=== PATIENT | male | born 1985 | race Caucasian/White ===

== ENCOUNTER → 2016-07-14 | Outpatient (CLI) | payer BC ==
[2016-07-14 13:25] LABS: ALBUMIN 4.4 GM/DL (3.2-5.2); ALBUMIN/GLOBULIN RATIO 1.42 (1.00-1.93); ALKALINE PHOSPHATASE 65 U/L (45-117); ALT/SGPT 65 U/L (12-78); ANION GAP 6 MEQ/L (8-16); AST/SGOT 25 U/L (15-37); BILIRUBIN,TOTAL 0.6 MG/DL (0.2-1.0); BLOOD UREA NITROGEN 17 MG/DL (7-18); CALCIUM LEVEL 9.3 MG/DL (8.5-10.1); CARBON DIOXIDE LEVEL 31 MEQ/L (21-32); CHLORIDE LEVEL 103 MEQ/L (98-107); CREATININE FOR GFR 1.18 MG/DL (0.70-1.30); GLOMERULAR FILTRATION RATE > 60.0 (>60); GLUCOSE, FASTING 91 MG/DL (70-105); POTASSIUM SERUM 4.8 MEQ/L (3.5-5.1); SODIUM LEVEL 140 MEQ/L (136-145); TOTAL PROTEIN 7.5 GM/DL (6.4-8.2)
[2016-07-14 14:29] LABS: CONTROL LINE INT CTR LINE PRESENT; HIV SCRN NEGATIVE (NEGATIVE); HIV SCRN1 NEGATIVE (NEGATIVE)
== END | disposition home or self-care (01) ==
LOC: M SMT 09:47
PROVIDERS: ATTEND Family Medicine
DX: I10 Essential (primary) hypertension (principal); Z11.3 Encounter for screening for infections with a predominantly sexual mode of transmission; R94.5 Abnormal results of liver function studies

== ENCOUNTER → 2016-10-12 | Day surgery (SDC) | payer BC ==
[~2016-10-12] VITALS: Ht 190.5 cm; Wt 127.0 kg
[~2016-10-12] MED LIST: ACETAMINOPHEN TAB 650MG DOSE (2X325MG) PO PRN; BUPIVACAINE HCL 0.25% 30 ML VIAL As Ordered ONE; CYCL10TA PO; HYDR25TAB PO; IBUPROFEN 400 MG TAB PO PRN; KETOROLAC 60 MG/2 ML VIAL (J1885) As Ordered ONE; LIDOCAINE 2% INJ 100 MG/5 ML SDV (FOR ANES.) As Ordered ONE; LR 1,000 ML IV ONE; LR 1,000 ML IV SCH; MIDAZOLAM INJ 2 MG/2 ML VIAL (J2250) As Ordered ONE; ONDANSETRON 4MG/2ML VIAL (J2405) As Ordered ONE; ONDANSETRON 4MG/2ML VIAL (J2405) IV PRN; POTA10TA16 PO; PROPOFOL 200 MG/20 ML VIAL As Ordered ONE; dexameTHASONE 4 MG/ML 1ML VIAL (J1100) As Ordered ONE; fentaNYL 100 MCG/2 ML INJECTION (J3010) IV PRN; fentaNYL 250 MCG/5 ML INJECTION (J3010) As Ordered ONE
[2016-10-12 10:15] VITALS: BP 134/67
--- NOTE | 2016-10-13 06:27 | RO ---
DATE OF PROCEDURE: 10/12/2016 PREOPERATIVE DIAGNOSIS: Elective sterilization by vasectomy. POSTOPERATIVE DIAGNOSIS: Elective sterilization by vasectomy. PROCEDURE PERFORMED: Bilateral transscrotal segmental vasectomy. SURGEON: Dr. Samy Toribio. SAND DIGGER: ANESTHESIA: General. INDICATIONS FOR PROCEDURE: Patient is a 31-year-old man who has two children and he and his spouse have determined they wish no more children. He was examined for vasectomy and his testicles are high in the scrotum and do not appear to be easily displaced inferiorly enough to make this a successful outpatient procedure in the office with local. He was therefore scheduled for surgery with anesthesia support in the main operating room. OPERATIVE PROCEDURE: The patient was placed supine on the operating table. He was placed under general anesthesia using an LMA. The genitalia were prepped and draped in a sterile fashion. Palpation on the right revealed the right vas which was displaced anteriorly beneath the skin. An approximately 1.5 cm incision was made and the deeper tissues were spread with scissors. The vas was grasped with a perforating towel clamp and elevated. The tissues covering the vas were opened so that the vas itself was clearly defined. This was then elevated and surrounding structures were peeled away. The section of vas was ligated proximally and distally with #4-0 chromic. An approximately 3 cm segment of the vas was excised. The ends of the vas were cauterized and the soft tissue was closed over the distal end of the vas. The skin wound was closed with #4-0 chromic. A similar procedure was performed on the left with excision of a 2-1/2 to 3 cm segment of the vas. Again tissue was interposed between the two ends of the vas after they were cauterized. The skin was closed with chromic. Some 0.25% Marcaine was infiltrated along both incisions. The patient was then awakened in the operating room, extubated and moved to the recovery room in stable condition. NORM
== END ==
LOC: M SDC 06:07
PROVIDERS: ATTEND Surgery
DX: Z30.2 Encounter for sterilization (principal); I10 Essential (primary) hypertension; M51.26 Other intervertebral disc displacement, lumbar region; Z79.899 Other long term (current) drug therapy
CPT/HCPCS: 55250; 88302; J1100; J1885; J2250; J2405; J3010

== ENCOUNTER → 2017-05-09 | Outpatient (CLI) | payer BC ==
[~2017-05-09] MED LIST changes: -ACETAMINOPHEN TAB 650MG DOSE (2X325MG) PO PRN; -BUPIVACAINE HCL 0.25% 30 ML VIAL As Ordered ONE; -IBUPROFEN 400 MG TAB PO PRN; -KETOROLAC 60 MG/2 ML VIAL (J1885) As Ordered ONE; -LIDOCAINE 2% INJ 100 MG/5 ML SDV (FOR ANES.) As Ordered ONE; -LR 1,000 ML IV ONE; -LR 1,000 ML IV SCH; -MIDAZOLAM INJ 2 MG/2 ML VIAL (J2250) As Ordered ONE; -ONDANSETRON 4MG/2ML VIAL (J2405) As Ordered ONE; -ONDANSETRON 4MG/2ML VIAL (J2405) IV PRN; -PROPOFOL 200 MG/20 ML VIAL As Ordered ONE; -dexameTHASONE 4 MG/ML 1ML VIAL (J1100) As Ordered ONE; -fentaNYL 100 MCG/2 ML INJECTION (J3010) IV PRN; -fentaNYL 250 MCG/5 ML INJECTION (J3010) As Ordered ONE
[2017-05-09 13:33] LABS: ALBUMIN 4.4 GM/DL (3.2-5.2); ALBUMIN/GLOBULIN RATIO 1.47 (1.00-1.93); ALKALINE PHOSPHATASE 51 U/L (45-117); ALT/SGPT 135 U/L (12-78); ANION GAP 7 MEQ/L (8-16); AST/SGOT 66 U/L (7-37); BILIRUBIN,TOTAL 0.7 MG/DL (0.2-1.0); BLOOD UREA NITROGEN 19 MG/DL (7-18); CALCIUM LEVEL 9.1 MG/DL (8.5-10.1); CARBON DIOXIDE LEVEL 31 MEQ/L (21-32); CHLORIDE LEVEL 101 MEQ/L (98-107); CHOLESTEROL LEVEL 164 MG/DL (<200); CREATININE FOR GFR 1.23 MG/DL (0.70-1.30); FREE T4 1.21 NG/DL (0.76-1.46); GLOMERULAR FILTRATION RATE > 60.0 (>60); GLUCOSE, FASTING 100 MG/DL (70-105); POTASSIUM SERUM 4.5 MEQ/L (3.5-5.1); SODIUM LEVEL 139 MEQ/L (136-145); TOTAL PROTEIN 7.4 GM/DL (6.4-8.2); TRIGLYCERIDES LEVEL 128 MG/DL (<150)
== END ==
LOC: M SMT 08:49
PROVIDERS: ATTEND Physician Assistant
DX: I10 Essential (primary) hypertension (principal); R94.5 Abnormal results of liver function studies

== ENCOUNTER → 2017-09-10 | Outpatient (REF) | payer BC | LOC: M LAB REF 17:05 | DX: J02.9 Acute pharyngitis, unspecified (principal) | CPT/HCPCS: 87070 ==

== ENCOUNTER → 2017-10-30 | Outpatient (CLI) | payer BC ==
[2017-10-30 14:10] LABS: ANION GAP 7 MEQ/L (8-16); BLOOD UREA NITROGEN 12 MG/DL (7-18); CALCIUM LEVEL 9.5 MG/DL (8.5-10.1); CARBON DIOXIDE LEVEL 30 MEQ/L (21-32); CHLORIDE LEVEL 104 MEQ/L (98-107); CREATININE FOR GFR 1.44 MG/DL (0.70-1.30); GLOMERULAR FILTRATION RATE > 60.0 (>60); GLUCOSE, FASTING 103 MG/DL (70-100); SODIUM LEVEL 141 MEQ/L (136-145)
== END ==
LOC: M LAB 13:07
DX: Z01.812 Encounter for preprocedural laboratory examination (principal); G56.01 Carpal tunnel syndrome, right upper limb
CPT/HCPCS: 93005

== ENCOUNTER → 2018-05-01 | Outpatient (CLI) | payer BC ==
[2018-05-01 13:41] LABS: BASO % 0.5 % (0.0-1.0); EOS # 0.1 10^3/uL (0.0-0.50); EOS % 1.9 % (0.0-3.0); HEMATOCRIT 51.7 % (42.0-52.0); HEMOGLOBIN 17.6 g/dl (13.5-17.5); IMMATURE GRANULOCYTE % 0.3 % (0-3.0); LYMPH # 1.8 10^3/uL (1.5-4.5); LYMPH % 23.6 % (24.0-44.0); MEAN CORPUSCULAR VOLUME 88.1 fl (80.0-96.0); MONO # 0.5 10^3/uL (0.0-0.8); MONO % 7.2 % (0.0-5.0); NEUTROPHILS % 66.5 % (36.0-66.0); PLATELET COUNT, AUTOMATED 216 10^3/uL (150-450); RED BLOOD COUNT 5.87 10^6/uL (4.30-6.10); RED CELL DISTRIBUTION WIDTH 12.4 % (11.5-14.5); WHITE BLOOD COUNT 7.6 10^3/uL (4.0-10.0)
[2018-05-01 14:11] LABS: ANION GAP 6 MEQ/L (8-16); BLOOD UREA NITROGEN 14 MG/DL (7-18); CALCIUM LEVEL 9.5 MG/DL (8.5-10.1); CARBON DIOXIDE LEVEL 33 MEQ/L (21-32); CHLORIDE LEVEL 100 MEQ/L (98-107); CREATININE FOR GFR 1.42 MG/DL (0.70-1.30); FREE T4 1.22 NG/DL (0.76-1.46); GLOMERULAR FILTRATION RATE > 60.0 (>60); GLUCOSE, FASTING 98 MG/DL (70-100); POTASSIUM SERUM 4.3 MEQ/L (3.5-5.1); SODIUM LEVEL 139 MEQ/L (136-145); TOTAL 25(OH) VITAMIN D 30.8 NG/ML (30.0-100.0)
== END ==
LOC: M SMT 08:46
DX: I10 Essential (primary) hypertension (principal); R53.83 Other fatigue
CPT/HCPCS: 84443

== ENCOUNTER → 2018-05-14 | Outpatient (CLI) | payer BC ==
--- NOTE | 2018-05-17 14:18 | SLEEPHOME ---
DATE OF STUDY: 05/14/2018 ORDERED BY: Chirag Mares Diagnostic home sleep testing was performed due to concern for the obstructive sleep apnea syndrome in this patient with a history of daytime fatigue. For testing, a nocturnal C3 respiratory monitoring device was used. Continuous record was made of pulse, oxygen saturation, airflow, chest and abdominal strain, and body position. 9 hours and 59 minutes of data were reviewed. There were 9 hours and 6 minutes marked as time in bed. During the interval marked time in bed, there were 61 respiratory events identified of 10 seconds in duration or greater for a respiratory event index of 6.7. The events were primarily obstructive, not exclusive to the supine posture. Baseline pulse rate was 74. Pulse rate ranged from 54 to 98. Baseline saturation was 95%. Saturations fell to 90%. Testing was performed in both the supine and nonsupine positions. IMPRESSION: Abnormal home sleep testing with repetitive respiratory events, oxygen desaturations to 90%, and a respiratory event index of 6.7 is consistent with the obstructive sleep apnea syndrome. RECOMMENDATION: As home testing can underestimate the severity of sleep apnea, referral for formal sleep evaluation and in-laboratory pressure titration should be considered.
== END ==
LOC: M SLEEP HO 13:57
PROVIDERS: ATTEND Physician Assistant
DX: G47.30 Sleep apnea, unspecified (principal)

== ENCOUNTER → 2020-11-18 | Outpatient (CLI) | payer BC ==
[~2020-11-18] MED LIST changes: +CYCL-707 PO; -CYCL10TA PO; +HYDR-3490 PO; -HYDR25TAB PO
--- NOTE | 2020-11-18 17:56 | REPVR ---
PROCEDURE INFORMATION: Exam: MR Lumbar Spine Without Contrast Exam date and time: 11/18/2020 3:07 PM Age: 35 years old Clinical indication: Low back pain; Additional info: Disc disorder with radiculopathy TECHNIQUE: Imaging protocol: Multiplanar magnetic resonance images of the lumbar spine without intravenous contrast. COMPARISON: CR Spine. Lumbosacral, complete 05/02/2014 11:24 AM FINDINGS: Vertebrae: The lumbar vertebral bodies are normal in height, without abnormal subluxation. Spinal cord: The distal end of the conus medullaris ends at L1, normal in position. Multilevel findings: Degenerative disc disease is noted from L3-L4 through L5-S1, with a decrease in the T2 signal intensity of the discs as well as disc bulge/osteophyte complexes. L1-L2: There is no significant narrowing of the thecal sac or neural foramina. L2-L3: Mild facet arthropathy and hypertrophy of the ligamentum flavum. Minimal disc bulging causing flattening of the ventral border of the thecal sac without significant spinal canal stenosis. There is mild bulging into the neural foramina, without significant neural foraminal narrowing bilaterally. L3-L4: Bilateral facet arthropathy with hypertrophy of the ligamentum flavum. There is a right paracentral disc protrusion with mild narrowing of the thecal sac. Mild prominence of the posterior epidural fat visualized. Narrowing of both lateral recesses. Moderate right and mild left neural foraminal narrowing. L4-L5: Bilateral facet arthropathy with hypertrophy of the ligamentum flavum. A broad-based disc central left-sided disc protrusion is visualized, with severe narrowing of the thecal sac. Mild prominence of the posterior epidural fat. The AP dimension of the thecal sac measures 6-7 mm. There is narrowing of both lateral recesses. Moderate right and severe left neural foraminal narrowing. There is encroachment on the exiting left L4 nerve root. Probable encroachment on the L5 nerve roots within the lateral recesses. Edema within the bone marrow adjacent to the endplates at this level, with a decrease in disc height. This edema is likely secondary to degenerative changes. L5-S1: Bilateral facet arthropathy. A broad-based disc bulge/osteophyte complex with protrusions are visualized causing narrowing the anterior epidural fat. Increased T2 signal intensity is seen within a central disc herniation versus a discal cyst. Severe narrowing of the thecal sac. Moderate to severe bilateral neural foraminal narrowing. Soft tissues: No significant paraspinal swelling. IMPRESSION: 1. Degenerative changes are noted from L2-L3 through L5-S1, as described above. 2. Protrusions are visualized at L4-L5 and L5-S1, with severe narrowing of the thecal sac at these levels. 3. At L3-L4, there is a right paracentral disc protrusion with mild narrowing of the thecal sac. 4. Neural foraminal narrowing from L3-L4 through L5-S1. There is encroachment on the exiting left L4 nerve root. Probable encroachment on the L5 nerve roots within the lateral recesses at L4-L5. 5. Additional findings described above. Electronically signed by: Eric Jacobo On 11/18/2020 17:56:11 PM
== END ==
LOC: M PLARAD 14:21
PROVIDERS: ATTEND Physician Assistant
DX: M51.16 Intervertebral disc disorders with radiculopathy, lumbar region (principal)

== ENCOUNTER → 2020-11-22 | Outpatient (CLI) | payer BC ==
--- NOTE | 2020-11-23 14:14 | SLEEPHOME ---
DATE: 11/22/2020 ORDERED BY: Antwan Nguyen Diagnostic home sleep testing was performed due to concern for the obstructive sleep apnea syndrome in this patient with a history of hypersomnia. For testing, a nocturnal T3 respiratory monitoring device was used. Continuous record was made of pulse, oxygen saturation, air flow, chest and abdominal strain, and body position. There was 11 hours and 53 minutes of data reviewed. There was 8 hours and 21 minutes marked as time in bed. During the interval marked time in bed, there were 56 respiratory events identified of 10 seconds in duration or greater. The events were primarily seen in the supine position. They were obstructive. Baseline pulse rate 75. Pulse rate ranged 52-111. Baseline saturation 94%. Saturations fell to 89%. Testing was performed in both the supine and nonsupine positions. IMPRESSION: Abnormal home sleep testing with repetitive respiratory events and oxygen desaturations to 89% with a respiratory event index of 6.7 is consistent with the obstructive sleep apnea syndrome. RECOMMENDATION: Sleep position retraining for avoidance of the supine posture may be sufficient. Should symptoms persist, referral for formal sleep evaluation is recommended.
== END ==
LOC: M SLEEP HO 10:40
PROVIDERS: ATTEND Physician Assistant
DX: G47.10 Hypersomnia, unspecified (principal)

== ENCOUNTER → 2020-12-14 | Outpatient (CLI) | payer BC ==
--- NOTE | 2020-12-14 23:45 | ECWPNPC ---
PATIENT NAME: SHERRIE LEE : 1985 GENDER: MALE VISIT DATE: 12/14/2020 DISCHARGE DATE: 12/14/20933 VISIT LOCKED DATE TIME: PHYSICIAN: LAN WYNNE RESOURCE: LAN WYNNE REASON FOR APPOINTMENT 1. DDD OF LUMBAR HISTORY OF PRESENT ILLNESS DEPRESSION SCREENING: PHQ-9 LITTLE INTEREST OR PLEASURE IN DOING THINGSNEARLY EVERY DAY FEELING DOWN, DEPRESSED, OR HOPELESSNOT AT ALL TROUBLE FALLING OR STAYING ASLEEP, OR SLEEPING TOO MUCHMORE THAN HALF THE DAYS FEELING TIRED OR HAVING LITTLE ENERGYNEARLY EVERY DAY POOR APPETITE OR OVEREATING NOT AT ALL FEELING BAD ABOUT YOURSELF-OR THAT YOU ARE A FAILURE OR HAVE LET YOURSELF OR YOUR FAMILY DOWN NOT AT ALL TROUBLE CONCENTRATING ON THINGS, SUCH READING THE NEWSPAPER OR WATCHING TELEVISION NOT AT ALL MOVING OR SPEAKING SO SLOWLY THAT OTHER PEOPLE COULD HAVE NOTICED. OR THE OPPOSITE- BEING SO FIDGETY OR RESTLESS THAT YOU HAVE BEEN MOVING AROUND A LOT MORE THAN USUALNOT AT ALL THOUGHTS THAT YOU WOULD BE BETTER OFF , OR OF HURTING YOURSELF IN SOME WAY?NOT AT ALL TOTAL SCORE:8 INTERPRETATIONMILD DEPRESSION PHQ-2 (2015 EDITION) LITTLE INTEREST OR PLEASURE IN DOING THINGS?NEARLY EVERY DAY FEELING DOWN, DEPRESSED, OR HOPELESS?NOT AT ALL TOTAL SCORE3 GENERAL: PLEASANT 35-YEAR-OLD GENTLEMAN BEING REFERRED BY [facility] WITH HISTORY OF CHRONIC LOW BACK PAIN. REMOTE HISTORY OF FALLING OFF OF A ROOF SEVERAL YEARS AGO. PAIN IN THE LOWER BACK WAS INTERMITTENT A FEW YEARS AFTER INJURY UNTIL THE PAST FEW YEARS. REPORTS PAIN IN THE CENTRAL LOW BACK WITH RADIATION INTO THE LOWER EXTREMITIES LEFT GREATER THAN RIGHT. PAIN HAS GOTTEN WORSE OVER THE PAST COUPLE OF YEARS. REVIEWED MRI OF THE LS SPINE AND DISCUSSED TREATMENT OPTIONS. DENIES BOWEL OR BLADDER INCONTINENCE. DENIES SADDLE PARESTHESIAS. - - -. FALL RISK SCREENING: SCREENING : NO FALLS REPORTED IN THE LAST YEAR . PAIN SCREENING: PATIENT HAS A COMPLAINT OF ACUTE OR CHRONIC PAIN :YES LOCATION OF PAIN:LOW BACK L3-L4,L4-L5,L5-S1 INTENSITY OF PAIN (SCALE OF 1 TO 10):3 WHAT DOES YOUR PAIN FEEL LIKE:ACHING, BURNING, CONTINOUS, STABBING, THROBBING, SORE, SHOOTING DURATION:CONTINOUS, CONSTANT, ALL DAY PAIN IS INCREASED BY:ACTIVITIES, PROLONGED STANDING PAIN IS DECREASED BY:USE OF PAIN MEDICATIONS, OTHERS ICE, RESTING NURSING NOTE: - - -. PAIN CENTER INTAKE QUESTIONS: DO YOU HAVE A HISTORY OF MRSA? :NO DO YOU TAKE A BLOOD THINNERS? :NO DO YOU HAVE ANY BLEEDING DISORDERS? :NO ANY NEW NUMBNESS OR WEAKNESS IN YOUR LEGS OR ARMS? :YES MOSTLY ON THE LEFT LEG ANY PACEMAKER,DEFIBRILLATOR, OR DORSAL COLUMN STIMULATOR? :NO DO YOU HAVE ANY RASHES OR OPEN SORES? :NO ARE YOU ALLERGIC TO IV DYE? :NO ARE YOU DIABETIC? :NO ANY NEW PROBLEMS WITH YOUR MEDICATIONS? :NO HAVE YOU RECEIVED A VACCINE IN THE PAST 30 DAYS? :NO DO YOU PLAN TO RECEIVE A VACCINE IN THE NEXT 21 DAYS? :NO DO YOU NEED ANY PRESCRIPTION? :NO DO YOU TAKE ANY IMMUNOSUPPRESSIVE MEDICATIONS? :NO IS THERE A CHANCE YOU COULD BE ? :NO ARE YOU BREAST FEEDING? 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 SURGICAL HISTORY BILATERAL CATARPAL TUNNEL 3 YEARS AGO FAMILY HISTORY FATHER: ALIVE MOTHER: 57 YRS, HEART ATTRACT SON(S): ALIVE DAUGHTER(S): ALIVE 1 SON(S) , 1 DAUGHTER(S) - HEALTHY. SOCIAL HISTORY GENERAL: TOBACCO USE ARE YOU A:FORMER SMOKER 18 YEARS AGO HOW LONG HAS IT BEEN SINCE YOU LAST SMOKED?> 10 YEARS LATEX QUESTIONNAIRE LATEX ALLERGY : HAVE YOU EVER DEVELOPED ANY TYPE OF REACTION AFTER HANDLING LATEX PRODUCTS SUCH RUBBER GLOVES, CONDOMS, DIAPHRAGMS, BALLOONS, SOCKS, OR UNDERWEAR?NO LATEX ALLERGY : HAVE YOU EVER DEVELOPED ANY TYPE OF REACTION DURING OR AFTER DENTAL APPOINTMENT, VAGINAL/RECTAL EXAMINATION, SURGICAL PROCEDURE, OR ANY OTHER EXPOSURE?NO LATEX RISK : HAVE YOU EVER HAD ANY DIFFICULTY BREATHING OR HIVES AFTER EATING OR HANDLING ANY FRUITS, OR VEGETABLES; SUCH KIWI, BANANAS, STONE FRUITS, OR CHESTNUTSNO LATEX RISK : DO YOU HAVE A PREVIOUS PERSONAL HISTORY OF MORE THAN NINE SURGERIES, SPINA BIFIDA, OR REPEATED CATHERIZATIONS? NO LATEX RISK : ARE YOU FREQUENTLY EXPOSED TO LATEX PRODUCTS IN YOUR OCCUPATION?NO DATE ASKED : 12/14/2020 ALCOHOL USE: NO, NOT IN 18 YEARS. RECREATIONAL DRUG USE DRUG USE?NO LANGUAGE LANGUAGES SPOKEN:RUSSIAN LEARNING BARRIERS / SPECIAL NEEDS CHANGE FROM LAST VISIT?NO BARRIERS TO LEARNING?NO HEARING IMPAIRED?NO VISION IMPAIRED?NO COGNITIVELY IMPAIRED?NO READINESS TO LEARN?YES LEARNING PREFERENCES?NO LEARNING CAPABILITIES PRESENT?YES EMOTIONAL BARRIERS?NO SPECIAL DEVICES?NO DATA REDUCTION TECHNICIAN NEEDED?NO HOSPITALIZATION/MAJOR DIAGNOSTIC PROCEDURE NO HOSPITALIZATION HISTORY. REVIEW OF SYSTEMS CONSTITUTIONAL: ANY RECENT FEVER NO . CHILLS NO . WEIGHT CHANGE OF UNKNOWN REASONS NO . GASTROENTEROLOGY: NEW UNEXPLAINABLE CHANGES IN BOWEL CONTROL NO . CONSTIPATION NO . GENITOURINARY: ANY NEW CHANGE IN BLADDER CONTROL? NO . NEUROLOGY: NEW ONSET DIZZINESS OR NEUROLOGICAL CHANGES NOT MENTIONED NO . NEW NUMBNESS OR PAIN PATTERNS NOT MENTIONED AND PERTINENT TO TODAY'S VISIT NO . CARDIOLOGY: NEW CHEST PRESSURE NO . PATIENT DENIES NO . RESPIRATORY: UNEXPLAINABLE COUGH NO . NEW SHORTNESS OF BREATH NO . VITAL SIGNS WT 300.8 LBS, HT 63 IN, BMI 53.28 INDEX, BP 159/85 MM HG, HR 69 /MIN, RR 18 /MIN, TEMP 97.0 F, OXYGEN SAT % 99%, SAFE IN ENV? (Y/N) YES, NA INITIALS AW [id number].BENSON HAYNES, PATIENT STATED THAT HE JUST TOOK HIS BLOOD PRESSURE MEDICATION ON HIS WAY TO HIS APPOINTMENT TODAY. EXAMINATION GENERAL EXAMINATION: GENERAL AWAKE,ALERT ,PLEASANT . PSYCH AFFECT NORMAL . NECK:NO LYMPHADENOPATHY, SUPPLE, NO THYROMEGALLY. LUNGS: LUNG MCGEE ARE CLEAR TO AUSCULTATION BILATERALLY. GOOD MOVEMENT OF AIR . HEART: S1, S2 IN A REGULAR RATE AND RHYTHM. NO SIGNIFICANT MURMURS, RUBS OR GALLOPS NOTED . MUSCULOSKELETAL: MUSCLE STRENGTH TESTING 5/5 BILATERAL LOWER EXTREMITIES. LUMBAR: PALPATION: + FOR PAIN OVER L/S SPINE. + FOR PAIN OVER L/S PARASPINALS SPECIFIC POINT TENDERNESS NOTED OVER RIGHT SIJ.. NEUROLOGIC EXAM:PARESTHESIAS TO LIGHT TOUCH OVER LEFT LOWER EXTREMITY. DIAGNOSTIC TESTS REVIEWED MRI L/S 10/2020. ASSESSMENTS RADICULOPATHY, LUMBOSACRAL REGION - M54.17 (PRIMARY) TREATMENT RADICULOPATHY, LUMBOSACRAL REGION MEDICATION: PAIN VALIUM TAB 5MG ORALLY (DIAZEPAM) (ORDERED FOR 12/28/2020) MEDICATION: PAIN OXYCODONE HCL TAB 5MG ORALLY (ORDERED FOR 12/28/2020) NOTES: LUMBAR EPIDURAL STERIOD INJECTION PRINTED AND REVIEWED PRE PROCEDURE INFORMATION, PATIENT VERBALIZED UNDERSTANDING CARMELO HAYNES. PROCEDURE CODES FA211 ESTABILISHED PATIENT [facility] CHARGE DISPOSITION & COMMUNICATION FOLLOW UP POST (REASON: LUMBAR EPIDURAL STERIOD INJECTION) ELECTRONICALLY SIGNED BY JERICHO FANG ON 12/14/2020 AT 06:44 PM EDT DISCLAIMER : THIS IS A VISIT SUMMARY EXTRACTED FROM THE [employer] CHART. IT IS NOT A COPY OF THE [employer] PROGRESS NOTE. NORM
== END ==
LOC: M PAIN 08:30
PROVIDERS: ATTEND Nurse Practitioner Family
DX: M54.17 Radiculopathy, lumbosacral region (principal); G47.30 Sleep apnea, unspecified; R03.0 Elevated blood-pressure reading, without diagnosis of hypertension; Z87.891 Personal history of nicotine dependence; Z79.899 Other long term (current) drug therapy

== ENCOUNTER → 2020-12-25 | Outpatient (CLI) | payer BC | LOC: M LABSMTC 11:52 | PROVIDERS: ATTEND Anesthesiology | DX: Z20.822 Contact with and (suspected) exposure to COVID-19 (principal) ==

== ENCOUNTER → 2020-12-30 | Outpatient (CLI) | payer BC ==
[~2020-12-30] MED LIST changes: +ISOVUE-M 300 61% 15ML VIAL As Ordered ONE; +LIDOCAINE 1% SDV 30ML VIAL As Ordered ONE; +diazePAM 5MG TABLET As Ordered ONE; +methylPREDNISolone SUSP 40MG/ML 1ML VIAL (DEPO MEDROL) As Ordered ONE; +oxyCODONE 5MG TAB As Ordered ONE
--- NOTE | 2020-12-30 13:32 | REP ---
INDICATION: LUMBAR EPIDURAL STEROID INJECTION. COMPARISON: None. TECHNIQUE: Single C-arm view lower lumbar spine. FINDINGS: A needle is seen at the L4-5 level. IMPRESSION: 9 seconds of fluoroscopy time was utilized. <Electronically signed by Prince Flores > 12/30/20 [id number]
--- NOTE | 2021-01-05 01:09 | ECWPNPC ---
PATIENT NAME: SHERRIE LEE : 1985 GENDER: MALE VISIT DATE: 12/30/2020 DISCHARGE DATE: 12/30/20 1325 VISIT LOCKED DATE TIME: PHYSICIAN: GREG PARHAM MD RESOURCE: GREG PARHAM MD REASON FOR APPOINTMENT 1. LUMBAR EPIDURAL STERIOD INJECTION HISTORY OF PRESENT ILLNESS GENERAL: -. FALL RISK SCREENING: SCREENING : NO FALLS REPORTED IN THE LAST YEAR. PAIN SCREENING: PATIENT HAS A COMPLAINT OF ACUTE OR CHRONIC PAIN :YES LOCATION OF PAIN:LOW BACK, LEFT HIP, RIGHT HIP, LEG(S) BACK AND SIDES OF BOTH LEGS-LEFT LEG IS WORSE INTENSITY OF PAIN (SCALE OF 1 TO 10):3 AVERAGE 3-5 WHAT DOES YOUR PAIN FEEL LIKE:ACHING, BURNING, CONTINOUS, SHARP, STABBING, THROBBING, SORE, SHOOTING DURATION:CONTINOUS, CONSTANT, AWAKENS FROM SLEEP PAIN IS INCREASED BY:ACTIVITIES, PROLONGED STANDING, OTHERS PROLONGED SITTING PAIN IS DECREASED BY:USE OF PAIN MEDICATIONS, OTHERS ICE, HEAT, REST NURSING NOTE: -. PAIN CENTER INTAKE QUESTIONS: DO YOU HAVE A HISTORY OF MRSA? :NO DO YOU TAKE A BLOOD THINNERS? :NO DO YOU HAVE ANY BLEEDING DISORDERS? :NO ANY NEW NUMBNESS OR WEAKNESS IN YOUR LEGS OR ARMS? :NO ANY PACEMAKER,DEFIBRILLATOR, OR DORSAL COLUMN STIMULATOR? :NO DO YOU HAVE ANY RASHES OR OPEN SORES? :NO ARE YOU ALLERGIC TO IV DYE? :NO ARE YOU DIABETIC? :NO ANY NEW PROBLEMS WITH YOUR MEDICATIONS? :NO HAVE YOU RECEIVED A VACCINE IN THE PAST 30 DAYS? :NO DO YOU PLAN TO RECEIVE A VACCINE IN THE NEXT 21 DAYS? :NO DO YOU TAKE ANY IMMUNOSUPPRESSIVE MEDICATIONS? :NO ANY HISTORY OF SEIZURES? :NO ANY HISTORY OF CARDIAC ISSUES OR EVENTS? :NO DO YOU HAVE ANY KIDNEY OR LIVER DISEASE? :NO DO YOU HAVE SLEEP APNEA? :YES DO YOU WEAR A CPAP?NO ANY RECENT HEAD INJURY? :NO DO YOU HAVE ANY NEW INFECTIONS? :NO IS THERE A CHANCE YOU COULD BE ? :NO ARE YOU BREAST FEEDING? :NO WHEN DID YOU LAST EAT? : 12/29 1900 WHEN DID YOU LAST DRINK? : 12/30 09 WHAT DID YOU LAST DRINK? : WATER NAME OF PERSON DRIVING YOU HOME? : GARY SCHMIDT DO YOU HAVE ANY OTHER QUESTIONS OR CONCERNS? 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 SOCIAL HISTORY GENERAL: TOBACCO USE ARE YOU A:FORMER SMOKER 18 YEARS AGO HOW LONG HAS IT BEEN SINCE YOU LAST SMOKED?> 10 YEARS LATEX QUESTIONNAIRE LATEX ALLERGY : HAVE YOU EVER DEVELOPED ANY TYPE OF REACTION AFTER HANDLING LATEX PRODUCTS SUCH RUBBER GLOVES, CONDOMS, DIAPHRAGMS, BALLOONS, SOCKS, OR UNDERWEAR?NO LATEX ALLERGY : HAVE YOU EVER DEVELOPED ANY TYPE OF REACTION DURING OR AFTER DENTAL APPOINTMENT, VAGINAL/RECTAL EXAMINATION, SURGICAL PROCEDURE, OR ANY OTHER EXPOSURE?NO LATEX RISK : HAVE YOU EVER HAD ANY DIFFICULTY BREATHING OR HIVES AFTER EATING OR HANDLING ANY FRUITS, OR VEGETABLES; SUCH KIWI, BANANAS, STONE FRUITS, OR CHESTNUTSNO LATEX RISK : DO YOU HAVE A PREVIOUS PERSONAL HISTORY OF MORE THAN NINE SURGERIES, SPINA BIFIDA, OR REPEATED CATHERIZATIONS? NO LATEX RISK : ARE YOU FREQUENTLY EXPOSED TO LATEX PRODUCTS IN YOUR OCCUPATION?NO DATE ASKED : 12/30/2020 ALCOHOL USE: NO, NOT IN 18 YEARS. ALCOHOL SCREENING DID YOU HAVE A DRINK CONTAINING ALCOHOL IN THE PAST YEAR?NO POINTS0 INTERPRETATIONNEGATIVE RECREATIONAL DRUG USE DRUG USE?NO LANGUAGE LANGUAGES SPOKEN:CROATIAN LEARNING BARRIERS / SPECIAL NEEDS CHANGE FROM LAST VISIT?NO BARRIERS TO LEARNING?NO HEARING IMPAIRED?NO VISION IMPAIRED?NO COGNITIVELY IMPAIRED?NO READINESS TO LEARN?YES LEARNING PREFERENCES?NO LEARNING CAPABILITIES PRESENT?YES EMOTIONAL BARRIERS?NO SPECIAL DEVICES?NO DRUPAL DEVELOPER NEEDED?NO DOMESTIC VIOLENCE DO YOU FEEL SAFE IN YOUR ENVIRONMENT?YES - HAS THE PATIENT BEEN EDUCATED REGARDING HIS/HER PLAN OF CARE?YES HAS THE PATIENT BEEN EDUCATED REGARDING PAIN, THE RISK FOR PAIN, THE IMPORTANCE OF EFFECTIVE PAIN MANAGEMENT, AND THE PAIN ASSESSMENT PROCESS?YES ADVANCE DIRECTIVE ADVANCE DIRECTIVE DISCUSSED WITH PATIENT:YES PT DOES NOT HAVE ANY ADVANCE DIRECTIVES AND DECLINES INFORMATION ON HCP AT THIS TIME VITAL SIGNS WT 300 LBS, WT-KG 136.08 KG, HT 63 IN, BMI 53.14 INDEX, BP 130/72 MM HG, HR 83 /MIN, RR 18 /MIN, TEMP 97.8 F, OXYGEN SAT % 98%, SAFE IN ENV? (Y/N) Y, NA INITIALS SC 11:12, REVIEWED BY: hSantal FRANK RN. EXAMINATION GENERAL: A HISTORY AND PHYSICAL EXAM ON THE PATIENT WAS DONE ON 12/14/2020 (DATE OF ORIGINAL ASSESSMENT) IN PREPARATION OF SURGERY/PROCEDURE. I HAVE NOW REASSESSED THIS PATIENT'S HEALTH STATUS AND PERFORMED AN UPDATED EXAM TODAY. ALL CHANGES IN THE PATIENT'S HISTORY, PHYSICAL EXAM, PRE-EXISTING CONDITONS, AND INDICATIONS/CONTRAINDICATIONS TO THE PLANNED PROCEDURE AND ANESTHESIA ARE DOCUMENTED AND EVALUATED BELOW. I ATTEST TO THE ADEQUACY AND APPROPRIATENESS OF MY ASSESSMENT, AND CONFIRM THE NECESSITY FOR THE PLANNED PROCEDURE. THE PATIENT IS ALERT, ORIENTED TIMES THREE AND COOPERATIVE. LUNGS ARE CLEAR TO AUSCULTATION. HEART SHOWS REGULAR RHYTHM, NO MURMURS AND NO GALLOPS. ASSESSMENTS RADICULOPATHY, LUMBOSACRAL REGION - M54.17 (PRIMARY) TREATMENT RADICULOPATHY, LUMBOSACRAL REGION [facility] FLUORO GUIDE SPINE INJECTION (PAIN)[id number] SALINE [id number],ANITA 12/30/2020 11:56:00 AM > SL STARTED ON 2ND ATTEMPT WITHOUT INCIDENT. 1ST ATTEMPT INFILTRATED WITH CATH THREADING. 2ND FLUSHED EASILY WITHOUT RESISTANCE OR SWELLING. PT. TOLERATED WELL. COMPLETION OF PROCEDURAL VISIT WHEN MEETS [id number],ANITA 12/30/2020 1:25:45 PM > CRITERIA MET @ 1325 MEDICATION: PAIN VALIUM TAB 5MG ORALLY (DIAZEPAM)[id number],JAMIE L 12/30/2020 11:25:27 AM > VERIFIED. CATRACHITO FRANK 12/30/2020 11:27:39 AM > ADMINISTERED DILEONARDMARGARITA AlexJEFFRY 12/30/2020 12:00:37 PM > SECOND DOSE ORDERED MOISE TOURE 12/30/2020 12:04:34 PM > VERIFIED. CATRACHITO FRANK 12/30/2020 12:06:55 PM > ADMINISTERED MEDICATION: PAIN OXYCODONE HCL TAB 5MG ORALLY [id number],JAMIE L 12/30/2020 11:25:39 AM > VERIFIED. MONIKACATRACHITO 12/30/2020 11:28:00 AM > ADMINISTERED DILEONARDAbiMARGARITAJEFFRY 12/30/2020 12:00:49 PM > SECOND DOSE ORDERED MOISE TOURE 12/30/2020 12:04:50 PM > VERIFIED. MONIKA,CATRACHITO 12/30/2020 12:07:45 PM > ADMINISTERED PROCEDURES PAIN NURSING RECORD PROCEDURE IN ROOM 1235, PHYSICIAN IN ROOM 1253, START 1257, FINISH 1301, PHYSICIAN OUT OF ROOM 1302, OUT OF ROOM 1309, ECG NORMAL SINUS, PATIENT SHIELDED YES, SAFETY STRAP YES, PREP BETADINE Kianna CARRINGTON RN, DRESSING TEGADERM DR. PARHAM LOC: MONIKA,CATRACHITO 12/30/2020 11:40:33 AM > 1. ALERT, ORIENTED RESP: MONIKA,CATRACHITO 12/30/2020 11:40:39 AM > 1. REGULAR, NO DYSPNEA COLOR: MONIKA,CATRACHITO 12/30/2020 11:40:42 AM > 1. PINK SKIN: MONIKA,CATRACHITO 12/30/2020 11:40:46 AM > 1. WARM, DRY POSITION: 1. PRONE VITALS: MONIKA,CATRACHITO 12/30/2020 11:45:42 AM > 133/77,76,16,97% MONIKACATRACHITO 12/30/2020 11:59:57 AM > 130/72,70,16,97% MONIKACATRACHITO 12/30/2020 12:14:15 PM > 126/68,72,16,99% CORTEZ CARRINGTON 12/30/2020 12:30> 128/68, HR70,R14, 99% MONIKACATRACHITO 12/30/2020 12:38:30 PM > 130/81,65,16,98% MONIKACATRACHITO 12/30/2020 12:53:30 PM > 131/67,69,16,96% MONIKACATRACHITO 12/30/2020 1:00:04 PM > 150/67,71,16,99% MONIKACATRACHITO 12/30/2020 1:06:30 PM > 155/71,66,16,97% CATRACHITO FRANK 12/30/2020 1:21:15 PM >133/84,70,16, 96% NOTES CATRACHITO FRANK 12/30/2020 12:00:01PM > PT DOES NOT FEEL ANY MORE RELAXED AFTER PRE-SEDATION. DR. PARHAM AWARE. ORDERS RECEIVED COMPLETION OF PROCEDURE APPOINTMENT: POST PAIN 5 PATIENT FEELS THIS IS FROM LAYING ON HIS STOMACH FOR THE PROCEDURE, DRESSING SITE DRY AND INTACT, IV DISCONTINUED, SITE CLEAR, CATHETER INTACT, GAIT STEADY, TEACHING COMPLETED, PATIENT ACKNOWLEDGES UNDERSTANDING YES, PROCEDURE APPOINTMENT COMPLETED AT 1325 BY: Shantal FRANK RN PRE PROCEDURE DIAGNOSIS LUMBAR DISC DISORDER WITH RADICULOPATHY POST PROCEDURE DIAGNOSIS LUMBAR DISC DISORDER WITH RADICULOPATHY PROCEDURE LUMBAR EPIDURAL STEROID INJECTION UNDER FLUOROSCOPIC GUIDANCE SURGEON DR. GREG PARHAM MANAGER [employer] NONE ANESTHESIA LOCAL PRE PROCEDURE NOTE THE PATIENT HAS A HISTORY OF CHRONIC LOW BACK PAIN. I EVALUATED THE PATIENT AND REVIEWED THE CHART. I WENT OVER THE RISKS, ALTERNATIVES, AND BENEFITS ASSOCIATED WITH THIS PROCEDURE. THE PATIENT WOULD LIKE TO PROCEED AND GIVE CONSENT TO PERFORMED THE PROCEDURE. THE PATIENT DENIES UNEXPLAINABLE WEIGHT LOSS, FEVER, CHILLS, OR NEW CHANGES IN URINARY OR BOWEL CONTROL. THE PATIENT IS COVID-19 NEGATIVE DESCRIPTION OF PROCEDURE THE PATIENT WAS BROUGHT TO THE PROCEDURE ROOM AND PLACED IN THE PRONE POSITION. THE LUMBOSACRAL AREA WAS CLEANED WITH BETADINE SOLUTION AND DRAPED ASEPTICALLY. THE PROCEDURE WAS DONE UNDER STERILE CONDITIONS. A TIMEOUT WAS PERFORMED WHERE THE CONSENTED SITE WAS VERIFIED WITH EVERYONE IN THE ROOM. UNDER FLUOROSCOPIC GUIDANCE, THE TARGET POINT WAS SELECTED AT THE INTERLAMINAR LEVEL OF L4-L5. I CONFIRMED AGAIN THE SITE OF TARGET. LIDOCAINE WAS USED TO NUMB THE SKIN AND THE SUBCUTANEOUS TISSUE BELOW IT. EPIDURAL TUOHY NEEDLE, 17-GAUGE, WAS ADVANCED UNDER FLUOROSCOPIC GUIDANCE AND FOLLOWING PATIENT FEEDBACK UNTIL THE EPIDURAL SPACE WAS REACHED 9 CM DEEP INTO THE SKIN BY THE LOSS OF RESISTANCE TECHNIQUE. ISOVUE-M DYE 30%, 0.25 ML, WAS INJECTED SHOWING ADEQUATE SPREAD OF THE DYE. THEN, A SOLUTION OF 3 ML OF NORMAL SALINE WITH DEPO-MEDROL 40 MG WAS INJECTED SLOWLY FOLLOWING PATIENT FEEDBACK. THE MEDICATIONS WERE VERIFIED WITH THE NURSE. THERE WAS NO EVIDENCE OF BLOOD, PARESTHESIA OR CEREBROSPINAL FLUID DURING THE PROCEDURE. THE PATIENT WAS SENT TO THE RECOVERY ROOM. THE PATIENT WAS MOVING THE EXTREMITIES AND DOING WELL. THERE WERE NO COMPLICATIONS DURING THE PROCEDURE. ESTIMATED BLOOD LOSS WAS LESS THAN 5 ML. FLUOROSCOPY TIME WAS 9 SECONDS POST PROCEDURE NOTE THE PATIENT WILL BE SEEN IN A FOLLOW UP IN THE NEXT FEW WEEKS. I AM LOOKING FOR LONG LASTING RELIEF FOR THE PATIENT WITH THIS INTERVENTION. INSTRUCTIONS WERE GIVEN, QUESTIONS WERE ANSWERED, AND THE PATIENT EXPRESSED UNDERSTANDING AND AGREES WITH THE PLAN. I, JEFFRY CINTRON, DOCUMENTED THE ABOVE INFORMATION ACTING A SCRIBE FOR DR. PARHAM. I HAVE REVIEWED THE ABOVE DOCUMENT, WRITTEN BY JEFFRY CINTRON, PICK UP TRUCK DRIVER, AND I VERIFY THAT IT IS ACCURATE VISIT CODES PROCEDURE CODES 85509 LUMBAR/SACRAL W/ IMAGING DISPOSITION & COMMUNICATION FOLLOW UP FOLLOW UP WITH LIEUTENANT BALLISTICS (REASON: POST LUMBAR EPIDURAL STEROID INJECTION) ELECTRONICALLY SIGNED BY GREG PARHAM MD, MD ON 01/04/2021 AT 01:33 PM EDT DISCLAIMER : THIS IS A VISIT SUMMARY EXTRACTED FROM THE [employer] CHART. IT IS NOT A COPY OF THE [employer] PROGRESS NOTE. NORM
== END ==
LOC: M PAIN 11:00
PROVIDERS: ATTEND Anesthesiology
DX: M54.17 Radiculopathy, lumbosacral region (principal); G47.30 Sleep apnea, unspecified; Z87.891 Personal history of nicotine dependence; R03.0 Elevated blood-pressure reading, without diagnosis of hypertension; Z79.899 Other long term (current) drug therapy
CPT/HCPCS: 62323; J1030; Q9967

== ENCOUNTER 2025-02-16 18:19 | Inpatient (IN) | payer OTHER, BC ==
[~2025-02-16] VITALS: Ht 190.5 cm; Wt 140.9 kg
[~2025-02-16 18:19] MED LIST changes: -ISOVUE-M 300 61% 15ML VIAL As Ordered ONE; -LIDOCAINE 1% SDV 30ML VIAL As Ordered ONE; +POTA-149 PO; -POTA10TA16 PO; -diazePAM 5MG TABLET As Ordered ONE; -methylPREDNISolone SUSP 40MG/ML 1ML VIAL (DEPO MEDROL) As Ordered ONE; -oxyCODONE 5MG TAB As Ordered ONE
[2025-02-16] MEDS ORDERED: ISOVUE-370 76% 100 ML VIAL As Ordered ONE (18:46)
[2025-02-16 18:56] LABS: BASO # 0.1 10^3/uL (0.0-0.2); BASO % 0.4 % (0.0-1.0); EOS # 0.2 10^3/uL (0.0-0.5); EOS % 1.1 % (0.0-3.0); LYMPH # 1.7 10^3/uL (1.5-5.0); LYMPH % 11.8 % (24.0-44.0); MONO # 0.8 10^3/uL (0.0-0.8); MONO % 5.7 % (2.0-8.0); NEUTROPHILS # 11.3 10^3/uL (1.5-8.5); NEUTROPHILS % 80.4 % (36.0-66.0); PLATELET COUNT, AUTOMATED 178 10^3/uL (150-450)
[2025-02-16 19:10] LABS: INR 0.94
[2025-02-16] MEDS: MORPHINE 4 MG/ML 1 ML VIAL IV PRN (19:15)
[2025-02-16 19:18] LABS: ALT/SGPT 68.0 U/L (7.0-40); AST/SGOT 44.0 U/L (<34); CALCIUM LEVEL 9.3 MG/DL (8.5-10.1); CARBON DIOXIDE LEVEL 26.0 MMOL/L (20-31); CHLORIDE LEVEL 101.0 MMOL/L (98-107); CREATININE FOR GFR 1.27 MG/DL (0.70-1.30); GLOMERULAR FILTRATION RATE 72.8 (>60); POTASSIUM SERUM 4.0 MMOL/L (3.5-5.1); SODIUM LEVEL 137.0 MMOL/L (136-145)
[2025-02-16] MEDS: ONDANSETRON 4MG 2ML VIAL IV PRN (20:10)
[2025-02-16] MEDS: KCL 20MEQ IN D5/0.45NS 1000ML 1,000 ML IV SCH (20:11)
[2025-02-16] MEDS: LR 1,000 ML IV SCH (21:36)
[2025-02-16] MEDS: FAMOTIDINE 20 MG TAB PO SCH (21:36)
[2025-02-16] MEDS: SENNOSIDES/DOCUSATE SODIUM 8.6 MG/50MG TAB PO SCH (21:36)
[2025-02-16] MEDS: ACETAMINOPHEN *IV* 1,000 MG in IV 1 EA IV SCH (21:38)
[2025-02-16] MEDS: LIDOCAINE 5% PATCH TD ONE (21:41)
[2025-02-16] MEDS ORDERED: METH-1165 PO (22:59)
[2025-02-16] MEDS ORDERED: SEMA0.5P SC (22:59)
[2025-02-16] MEDS ORDERED: TIZA2TA PO (22:59)
[2025-02-16] MEDS ORDERED: TEST200I14 IM (22:59)
[2025-02-16] MEDS ORDERED: IBUP200T46 PO (23:01)
[2025-02-16] MEDS ORDERED: MIDOTAB11 PO (23:01)
[2025-02-16] MEDS ORDERED: VALS1TAB68 PO (23:01)
[2025-02-16] MEDS ORDERED: AMLO1TAB24 PO (23:01)
[2025-02-16] MEDS ORDERED: CITA40TA7 PO (23:01)
[2025-02-16] MEDS ORDERED: HOME MED LIST COMPLETE! XX SCH (23:05)
[2025-02-17] VITALS (32 sets, daily range): BP systolic 110–149; BP diastolic 57–89; TEMP 97.5–98.6; O2SAT 92–96
[2025-02-17] MEDS: MORPHINE 4 MG/ML 1 ML VIAL IV PRN (00:40)
[2025-02-17] MEDS: KETOROLAC 30 MG/ML 1 ML VIAL IV SCH (00:40)
[2025-02-17 05:43] LABS: PLATELET COUNT, AUTOMATED 168 10^3/uL (150-450)
[2025-02-17 06:17] LABS: ALT/SGPT 59.0 U/L (7.0-40); AST/SGOT 36.0 U/L (<34); CALCIUM LEVEL 8.3 MG/DL (8.5-10.1); CARBON DIOXIDE LEVEL 27.0 MMOL/L (20-31); CHLORIDE LEVEL 103.0 MMOL/L (98-107); CREATININE FOR GFR 1.21 MG/DL (0.70-1.30); GLOMERULAR FILTRATION RATE 77.1 (>60); POTASSIUM SERUM 4.3 MMOL/L (3.5-5.1); SODIUM LEVEL 137.0 MMOL/L (136-145)
[2025-02-17] MEDS ORDERED: LIDOCAINE 1% MDV 20 ML VIAL As Ordered ONE (07:29)
[2025-02-17] MEDS: LIDOCAINE 1% MDV 20 ML VIAL SC ONE (07:30)
[2025-02-17] MEDS: ENOXAPARIN 40 MG/0.4 ML SYRINGE (J1650 PER 10MG) SC SCH (09:35)
[2025-02-17] MEDS: POLYSPORIN TOPICAL OINTMENT 15GM TOP SCH (09:37)
[2025-02-17] MEDS: LIDOCAINE 5% PATCH TD ONE (23:58)
[2025-02-18] VITALS (8 sets, daily range): BP systolic 121–141; BP diastolic 62–80; TEMP 97.6–98.9; O2SAT 90–97
[2025-02-18 05:35] LABS: PLATELET COUNT, AUTOMATED 132 10^3/uL (150-450)
[2025-02-18 06:00] LABS: ALT/SGPT 50.0 U/L (7.0-40); AST/SGOT 36.0 U/L (<34); CALCIUM LEVEL 8.1 MG/DL (8.5-10.1); CARBON DIOXIDE LEVEL 28.0 MMOL/L (20-31); CHLORIDE LEVEL 104.0 MMOL/L (98-107); CREATININE FOR GFR 1.13 MG/DL (0.70-1.30); GLOMERULAR FILTRATION RATE 83.7 (>60); POTASSIUM SERUM 4.5 MMOL/L (3.5-5.1); SODIUM LEVEL 135.0 MMOL/L (136-145)
[2025-02-18] MEDS: HYDROmorphone HCL 2 MG/ML 1 ML VIAL IV PRN (13:12)
[2025-02-19] VITALS (7 sets, daily range): BP systolic 121–154; BP diastolic 68–83; TEMP 98–99; O2SAT 94–98
[2025-02-19 04:50] LABS: PLATELET COUNT, AUTOMATED 131 10^3/uL (150-450)
[2025-02-19 05:21] LABS: ALT/SGPT 41.0 U/L (7.0-40); AST/SGOT 32.0 U/L (<34); CALCIUM LEVEL 7.8 MG/DL (8.5-10.1); CARBON DIOXIDE LEVEL 29.0 MMOL/L (20-31); CHLORIDE LEVEL 104.0 MMOL/L (98-107); CREATININE FOR GFR 1.17 MG/DL (0.70-1.30); GLOMERULAR FILTRATION RATE 80.3 (>60); POTASSIUM SERUM 4.2 MMOL/L (3.5-5.1); SODIUM LEVEL 137.0 MMOL/L (136-145)
[2025-02-19] MEDS ORDERED: NALOXONE INJ 0.4 MG/1 ML VIAL IV PRN (06:40)
[2025-02-19] MEDS ORDERED: MORPHINE 10 MG/ML 1 ML VIAL IV PRN (06:55)
[2025-02-19] MEDS: MORPHINE SULFATE TAB IMM. REL. 30 MG PO ONE (07:00)
[2025-02-19] MEDS: MIRALAX *UNIT DOSE* 17 GM PACKET PO SCH (09:00)
[2025-02-19] MEDS: SENNOSIDES/DOCUSATE SODIUM 8.6 MG/50MG TAB PO SCH (09:00)
[2025-02-19] MEDS: MORPHINE SULFATE TAB EXT REL 15 MG PO SCH (09:00)
[2025-02-19] MEDS ORDERED: HYDROmorphone HCL 2 MG/ML 1 ML VIAL As Ordered ONE (09:04)
[2025-02-19] MEDS ORDERED: dexAMETHasone 4 MG/ML 1 ML VIAL As Ordered ONE (09:05)
[2025-02-19] MEDS ORDERED: SUGAMMADEX SODIUM 500 MG/5 ML VIAL As Ordered ONE (09:05)
[2025-02-19] MEDS ORDERED: ONDANSETRON 4MG 2ML VIAL As Ordered ONE (09:05)
[2025-02-19] MEDS ORDERED: MIDAZOLAM INJ 2 MG/2 ML VIAL As Ordered ONE (09:05)
[2025-02-19] MEDS ORDERED: ACETAMINOPHEN 1000MG/100ML IV BAG As Ordered ONE (09:05)
[2025-02-19] MEDS ORDERED: LIDOCAINE 2% 100 MG/5 ML SDV (FOR ANES.) As Ordered ONE (09:05)
[2025-02-19] MEDS ORDERED: ROCURONIUM BROMIDE 50MG/5ML VIAL As Ordered ONE (09:05)
[2025-02-19] MEDS: TRANEXAMIC ACID 100 MG/ML 10ML VIAL As Ordered ONE (11:28)
[2025-02-19] MEDS ORDERED: PHENYLEPHRINE 10MG/ML 1ML VIAL As Ordered ONE (11:29)
[2025-02-19] MEDS ORDERED: KETOROLAC 30 MG/ML 1 ML VIAL As Ordered ONE (12:29)
[2025-02-19] MEDS: VANCOMYCIN 500MG/10ML VIAL As Ordered ONE (12:42)
[2025-02-19] MEDS ORDERED: MORPHINE 4 MG/ML 1 ML VIAL IV PRN (13:25)
[2025-02-19] MEDS ORDERED: ONDANSETRON 4MG 2ML VIAL IV PRN (13:25)
[2025-02-19] MEDS: MORPHINE SULFATE TAB IMM. REL. 15 MG PO ONE (16:27)
[2025-02-19] MEDS: DEXTROSE 5% IV SCH (18:35)
[2025-02-19] MEDS: ADV IV SCH (18:35)
[2025-02-19] MEDS: MINI IV SCH (18:35)
[2025-02-19] MEDS: CEFAZOLIN SODIUM IV SCH (18:35)
[2025-02-20] VITALS: BP 129/64; TEMP 97.8; O2SAT 97
[2025-02-20 04:00] VITALS: BP 134/60; TEMP 97.5; O2SAT 98
[2025-02-20] MEDS: MORPHINE SULFATE TAB IMM. REL. 30 MG PO PRN (04:34)
[2025-02-20 04:47] LABS: PLATELET COUNT, AUTOMATED 160 10^3/uL (150-450)
[2025-02-20 05:12] LABS: ALT/SGPT 31 U/L (7.0-40); AST/SGOT 26 U/L (<34); CALCIUM LEVEL 8.2 MG/DL (8.5-10.1); CARBON DIOXIDE LEVEL 28 MMOL/L (20-31); CHLORIDE LEVEL 103 MMOL/L (98-107); CREATININE FOR GFR 1.04 MG/DL (0.70-1.30); GLOMERULAR FILTRATION RATE > 90.0 (>60); POTASSIUM SERUM 4.2 MMOL/L (3.5-5.1); SODIUM LEVEL 139 MMOL/L (136-145)
[2025-02-20 08:00] VITALS: BP 135/70; TEMP 98.3; O2SAT 93
[2025-02-20 12:00] VITALS: BP 120/59; TEMP 98.1; O2SAT 95
[2025-02-20] MEDS ORDERED: ACET-861 PO (13:41)
[2025-02-20] MEDS ORDERED: OXYC10TA12 PO (13:44)
[2025-02-20] MEDS ORDERED: CEFDINIR 300 MG CAP PO SCH (21:00)
== END 2025-02-20 14:45 | disposition home or self-care (01) | DRG 320 ==
LOC: M ED 18:19 → M ED INP 19:56 → M ICU 02-17 01:07
PROVIDERS: ADMIT Surgery; ATTEND General Practice
PROC: 0W9B30Z Drainage of Left Pleural Cavity with Drainage Device, Percutaneous Approach (ICD-10-PCS; 2025-02-17)
PROC: 0PSB04Z Reposition Left Clavicle with Internal Fixation Device, Open Approach (ICD-10-PCS; principal; 2025-02-19 10:30)
DX: S42.032A Displaced fracture of lateral end of left clavicle, initial encounter for closed fracture (principal); S27.0XXA Traumatic pneumothorax, initial encounter; S22.42XA Multiple fractures of ribs, left side, initial encounter for closed fracture; E78.5 Hyperlipidemia, unspecified; I12.9 Hypertensive chronic kidney disease with stage 1 through stage 4 chronic kidney disease, or unspecified chronic kidney disease; E66.9 Obesity, unspecified; M54.50 Low back pain, unspecified; M47.812 Spondylosis without myelopathy or radiculopathy, cervical region; G47.30 Sleep apnea, unspecified; N18.2 Chronic kidney disease, stage 2 (mild); R74.01 Elevation of levels of liver transaminase levels; M47.816 Spondylosis without myelopathy or radiculopathy, lumbar region; M48.061 Spinal stenosis, lumbar region without neurogenic claudication; Z68.39 Body mass index [BMI] 39.0-39.9, adult; Z79.899 Other long term (current) drug therapy; V20.49XA Other motorcycle driver injured in collision with pedestrian or animal in traffic accident, initial encounter; Y92.410 Unspecified street and highway as the place of occurrence of the external cause; Y93.89 Activity, other specified; Y99.8 Other external cause status

== ENCOUNTER → 2025-03-03 | Outpatient (CLI) | payer OTHER, BC ==
[~2025-03-03] MED LIST changes: +ACET-861 PO; +AMLO1TAB24 PO; +CITA40TA7 PO; +IBUP200T46 PO; +METH-1165 PO; +MIDOTAB11 PO; +OXYC10TA12 PO; +SEMA0.5P SC; +TEST200I14 IM; +TIZA2TA PO; +VALS1TAB68 PO
== END ==
LOC: M SOG 07:26
PROVIDERS: ATTEND Orthopaedic Surgery
DX: Z98.890 Other specified postprocedural states (principal); Z47.89 Encounter for other orthopedic aftercare

== ENCOUNTER → 2025-04-03 | Outpatient (CLI) | payer OTHER, BC | LOC: M SOG 07:43 | PROVIDERS: ATTEND Orthopaedic Surgery | DX: S42.022D Displaced fracture of shaft of left clavicle, subsequent encounter for fracture with routine healing (principal) ==